=== PATIENT | male | born 1955 | race Caucasian/White ===

== ENCOUNTER → 2016-12-15 | Outpatient (CLI) | payer BC ==
[~2016-12-15] MED LIST: KETO10TA PO; OXYC-57 PO
[2016-12-15 16:05] LABS: HEMATOCRIT 40.3 % (42-52); MEAN CORPUSCULAR HEMOGLOBIN 29.8 pg (25-34); MEAN CORPUSCULAR HGB CONC 34.2 g/dl (32-36); MEAN PLATELET VOLUME 10.5 fL (7.4-10.4); PLATELET COUNT 167 K/uL (130-400); RED BLOOD COUNT 4.63 M/uL (4.7-6.1); WHITE BLOOD COUNT 5.81 K/uL (4.8-10.8)
[2016-12-15 16:27] LABS: POTASSIUM 4.3 mmol/L (3.5-5.1)
== END | disposition home or self-care (01) ==
LOC: C.CPL 15:39
PROVIDERS: ATTEND Orthopaedic Surgery Sports Medicine
DX: Z01.812 Encounter for preprocedural laboratory examination (principal); Z01.810 Encounter for preprocedural cardiovascular examination; S46.211A Strain of muscle, fascia and tendon of other parts of biceps, right arm, initial encounter; X58.XXXA Exposure to other specified factors, initial encounter

== ENCOUNTER → 2016-12-17 | Day surgery (SDC) | payer BC ==
[2016-12-16 08:14] VITALS: Ht 170.2 cm; Wt 73.6 kg
[~2016-12-17] VITALS: Ht 170.2 cm; Wt 73.6 kg
[~2016-12-17] MED LIST changes: +ATROPINE SULFATE 0.1 MG/ML 5ML SYR IV PRN; +ATROPINE SULFATE 1MG/2.5ML SYR ONE; +BUPIVACAINE/EPINEPHRINE 0.5% MPF 1:200,000 30 ML VIAL ONE; +CEFAZOLIN 2000 MG/60 ML D5W IV SCH; +CEFAZOLIN SOD 1 GM VIAL ONE; +CEFAZOLIN SOD 1000MG/55 ML D5W IV SCH; +EpHEDrine SULFATE INJ 50 MG/ML AMP IV PRN; +FENTANYL CITRATE INJ 50 MCG/1 ML 2 ML VIAL IV PRN; +FENTANYL CITRATE INJ 50 MCG/1 ML 2 ML VIAL ONE; +LACTATED RINGER'S 1000ML 1,000 ML IV SCH; +LIDOCAINE HCL 2% 2 ML VIAL (20MG/ML) ONE; +MEPERIDINE HCL 50 MG/ML CARP ONE; +MIDAZOLAM HCL 1 MG/ML 2ML VIAL ONE; +NURSING VERBAL MED ORDER ONE; +ONDANSETRON INJ 2 MG/ML 2 ML VIAL IV PRN; +OXYCODONE/ACETAMINOPHEN 5-325 TAB PO PRN; +PROPOFOL IV EMULSION 10 MG/ML 20 ML VIAL IV ONE; +SODIUM CHLORIDE 0.9% 1000ML 1,000 ML IV SCH
--- NOTE | 2016-12-17 12:35 | History & Physical Bridge - [place] ---
H&P Re-Evaluation Bridge Note: I have examined the patient, reviewed the History & Physical and in the interval since the performance of the History & Physical I have noted the following changes of clinical significance: No changes noted
--- NOTE | 2016-12-17 14:07 | [facility] Post Operative Brief Note ---
Immediate Operative Summary Operative Date Dec 17, 2016. Pre-Operative Diagnosis Right Distal Biceps Rupture Post-Operative Diagnosis Same Procedure(s) Performed Right Distal Biceps Repair Surgeon Dr. Cardenas Bank Note Designer Surgeon(s) Robert Wagner PA-C Estimated Blood Loss 20 mL Findings Right Distal Biceps Rupture Specimens None Anesthesia General Complication(s) None Disposition Recovery Room / PACU
--- NOTE | 2016-12-17 14:09 | Discharge Instructions-SurgCtr ---
Discharge Instructions Date of Service Dec 17, 2016. Visit Reason for Visit: Right Distal Biceps Rupture Discharge Discharge Diagnosis / Problem: right distal bicep rupture Discharge Goals Goal(s): Improve function, Therapeutic intervention Activity Recommendations Activity Limitations: per Instructions/Follow-up section Anesthesia . Post Anesthesia Instructions: If you have had General Anesthesia or IV Sedation: * Do not drive today. * Resume driving when surgeon permits. * Do not make important decisions or sign legal documents today. * Call surgeon for: 1. Temperature elevations greater than 101 degrees F. 2. Uncontrollable pain. 3. Excessive bleeding. 4. Persistent nausea and vomiting. 5. Medication intolerance (nausea, vomiting or rash). * For nausea and vomiting use only clear liquids such as: tea, soda, bouillon until nausea subsides, then gradually increase diet as tolerated. * If you have any concerns or questions, call your surgeon's office. If physician is unavailable and it is an emergency, call 911 or go to the nearest emergency room. . Instructions / Follow-Up Instructions / Follow-Up MEDICATIONS: * Resume previous medications unless instructed otherwise by your surgeon. * Always take pain medication on a full stomach or with food to avoid upset stomach. * Do not drink alcohol or drive while taking narcotics. * Ibuprofen or Tylenol may be taken if narcotic not needed. no ibuprofen while taking toradol SPECIAL CARE INSTRUCTIONS: __ None _x_ Keep extremity elevated and iced x 48 hours; apply ice 20-30 minutes 8-10 times/day. May remove at night. _x_ Sling __24 hrs/day __ Remove at night __ Shoulder Immobilizer __ 24 hrs/day __ Remove at night _x_ Dressing _x_ Maintain until seen in office, may shower with plastic over site __ Remove dressings in 24-48 hours and then may shower __ Cover incisions with band-aids after showering __ Do not remove steri-strips Call physician if chills or temperature rises above 102 degrees or pain unrelieved by prescribed pain medications at . . follow up in 2 weeks Diet Recommendations Home Diet: resume previous diet Procedures Procedures Performed: Right Distal Biceps Repair Pending Studies Studies pending at discharge: no Medical Emergencies . Who to Call and When: Medical Emergencies: If at any time you feel your situation is an emergency, please call 911 immediately. . Non-Emergent Contact Non-Emergency issues call your: Surgeon . . "Provider Documentation" section prepared by Nathaniel Wagner. .
--- NOTE | 2016-12-17 15:12 | Anesthesia Progress Nt - [facility] ---
Anesthesia Post Op Note Date & Time Dec 17, 2016 at 15:12 Vital Signs Pain Intensity: 3 Vital Signs Past 12 Hours Date Time Temp Pulse Resp B/P (MAP) Pulse Ox O2 Delivery O2 Flow Rate FiO2 12/17/16 15:08 36.7 75 12 166/108 98 Room Air 12/17/16 14:20 77 12 100 12/17/16 14:20 77 12 12/17/16 14:16 155/102 12/17/16 14:15 77 11 12/17/16 14:15 77 11 100 12/17/16 14:11 149/90 12/17/16 14:10 81 13 100 12/17/16 14:10 80 13 12/17/16 14:06 128/78 12/17/16 14:05 78 12/17/16 14:05 36.7 79 12 128/78 99 Diffusion Mask 6 12/17/16 14:05 78 99 12/17/16 11:39 36.4 62 16 135/97 (110) 100 Room Air Notes Mental Status: alert / awake / arousable, participated in evaluation Pt Amnestic to Procedure: Yes Nausea / Vomiting: adequately controlled Pain: adequately controlled Airway Patency, RR, SpO2: stable & adequate BP & HR: stable & adequate Hydration State: stable & adequate Anesthetic Complications: no major complications apparent
[2016-12-17 15:25] VITALS: TEMP 36.7
[2016-12-17 15:57] VITALS: BP 157/98; PULSE 67; O2SAT 97
--- NOTE | 2016-12-18 07:52 | OPERATIVE REPORT ---
DATE OF OPERATION: 12/17/2016 SURGEON: Dr. Evgeny Cardenas. HEALTH RESEARCHER: ROXANA Anglin. PREOPERATIVE DIAGNOSIS: Right distal biceps rupture. POSTOPERATIVE DIAGNOSIS: Same. PROCEDURE PERFORMED: Right distal biceps repair. COMPLICATIONS: None. ESTIMATED BLOOD LOSS: 20 mL TOURNIQUET TIME: 39 minutes at 250 mmHg. ANESTHESIA: General. SPECIMENS: None. 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 He was lifting a piece of equipment up some stairs with an assistant boys track coach, when the assistant boys track coach lost his precision instrument maker and repairer, lost the precision instrument maker and repairer and he ended up taking the full load. He had acute onset of pain and discomfort in his right arm. He was having some prodromal symptoms with weight lifting and activities before this. He developed acute onset of pain, discomfort and deformity to his arm. He was seen in clinic and diagnosed with a distal biceps rupture. The patient elected to proceed with surgical treatment. OPERATIVE PROCEDURE: The patient was taken to the operating room, identified and placed on operative table in supine position. All contact areas were appropriately padded. IV antibiotics provided by anesthesia team. A right arm tourniquet was placed. The right arm was elevated and exsanguinated with use of an Esmarch and tourniquet was placed at 250 mmHg. An anterior approach to the elbow was performed through a transverse incision in the antecubital crease. This total length was about 3-4 cm in length. Blunt dissection was carried out through the subcutaneous tissues to the fascia. The fascia was opened and the biceps tendon stump was easily identified. I trimmed the distal portion of the stump up. I then placed a #2 FiberWire suture in a running fashion up and down the tendon and then placed a #5 Ethibond suture in a modified [place] fashion. This was then tucked back up in the arm until ready for later repair. The tract from the anterior aspect of the elbow, the posterior aspect of the elbow was then deveoped with use of my finger. I then placed a Lisa clamp along with that and to the posterior aspect of the elbow. This area was marked. The posterior exposure was then begun. A longitudinal incision was made directly over the radial tuberosity posteriorly. We did make this far enough from the ulna to make sure we did not expose the ulna. Keeping the arm pronated all the times, an incision was made. Sharp dissection was carried out through the subcutaneous tissues down to the level of fascia. The fascia was incised longitudinally in line with skin incision. I then dissected directly through the extensor muscle mass to the radial tuberosity. Once again, the radial nerve was very carefully protected with pronation at all times. The radial tuberosity was easily visualized and cleaned of soft tissues. I used a chao to create a hole in the radial tuberosity with the biceps tendon insertion. I then used a drill to drill two holes in the lateral cortex into the intramedullary canal of the radius. A Hewson suture passer was then used to pass sutures from the outside into the canal and out for passing the biceps tendon. I then passed the biceps tendon from the anterior aspect of the elbow through the arm to the backside of the forearm in the area of the biceps dstuberosity. The suture passers were then used to pass the sutures from the biceps into the intramedullary canal and out the lateral aspect of the radius. I very carefully stuffed the biceps tendon into the hole of the radial tuberosity. I then tied the sutures laterally. This provided excellent repair and approximation of the biceps into the intramedullary canal. I did took great care to protect the lateral antebrachial cutaneous nerve throughout the procedure and made sure that the biceps was appropriately positioned and not twisted. Attention was then drawn toward closing. Both wounds were then irrigated with copious amounts of normal saline. I injected locally with a total of 30 mL of 0.5% Marcaine with epinephrine with 20 mL in the posterior wound and 10 mL in the anterior wound. The fascia of the posterior forearm was then closed with 0 Vicryl suture in a running fashion closed. Incisions were then closed with 2-0 Dexon suture in a buried interrupted fashion. The skin was then closed with 3-0 Prolene suture in a subcuticular fashion. Both wounds were then cleaned and Steri-Strips were applied. Xeroform was placed over both incisions followed by 4 x 4's, sterile cast padding and a well-padded posterior splint with the arm in 90 abduction. I then placed him in a sling. The patient was then brought out of general anesthesia and transferred to the recovery room in stable condition. The patient tolerated the procedure well with no complications. All needle and sponge counts were correct at the end of the operation. I attest to the content of the Intraoperative Record and any orders documented therein. Any exceptions are noted below. MICHAEL
== END | disposition home or self-care (01) ==
LOC: X.SURG 11:35
PROVIDERS: ATTEND Orthopaedic Surgery Sports Medicine
DX: S46.211A Strain of muscle, fascia and tendon of other parts of biceps, right arm, initial encounter (principal); X50.0XXA Overexertion from strenuous movement or load, initial encounter